=== PATIENT | female | born 1945 | race Caucasian/White ===

== ENCOUNTER 2016-08-14 19:13 | Emergency (ER) | payer MEDICARE, OTHER ==
[~2016-08-14 19:13] MED LIST: ALLEGRA180 PO; ASAB PO; BENICAR HCT1 TA2 PO; CARDCD120 PO; CELEBREX2 PO; CORDARONE PO; DITROXL5 PO; DULERA 100 MCG/13 GM INH; EFFEXOR XR150 MG PO; FISH OIL1200 MG PO; FLONASE NAS; HYDROCHLOROT25 MG PO; HYDROCODONE PO; KDUR20 PO; KLOR-CON M2020 MEQ PO; L20 PO; L40 PO; LAM250 PO; LIPITOR10 PO; LOPROX0.771 TOP; MAGNEBIND300 MG PO; MAX25 PO; MULTIVIT/MIN PO; NYSTOP100000 MG TOP; OMNICEF300 PO; PACERONE100 MG PO; PATADAY OPH; PATANASE0.6 % NAS; PLAVIX PO; PROAIR HFA INH; SINGULAIR1 PO; SYNTHROID200 MCG PO; VICODINTAB PO; VITAMIN D31000 UNIT PO; Z300 PO; ZESTRIL20 MG PO
== END 2016-08-14 20:44 | disposition home or self-care (01) ==
LOC: ER 19:13
PROC: 2W3DX1Z Immobilization of Left Lower Arm using Splint (ICD-10-PCS; principal; 2016-08-14)
DX: S69.92XA Unspecified injury of left wrist, hand and finger(s), initial encounter (principal); I10 Essential (primary) hypertension; F32.9 Major depressive disorder, single episode, unspecified; Z91.040 Latex allergy status; Z91.09 Other allergy status, other than to drugs and biological substances; Z79.899 Other long term (current) drug therapy; Z79.82 Long term (current) use of aspirin; W23.0XXA Caught, crushed, jammed, or pinched between moving objects, initial encounter
CPT/HCPCS: 73110-LT; 73130-LT; 99283

== ENCOUNTER 2016-11-04 13:36 | Emergency (ER) | payer MEDICARE, OTHER | END 2016-11-04 13:45 | disposition home or self-care (01) | LOC: ER 13:36 | DX: S39.012A Strain of muscle, fascia and tendon of lower back, initial encounter (principal); I10 Essential (primary) hypertension; Z95.0 Presence of cardiac pacemaker; Z91.040 Latex allergy status; Z91.018 Allergy to other foods; Z91.09 Other allergy status, other than to drugs and biological substances; Z79.899 Other long term (current) drug therapy; Z79.82 Long term (current) use of aspirin; Z79.891 Long term (current) use of opiate analgesic | CPT/HCPCS: 72100; 73502-LT; 99283; A9270-GY ==